=== PATIENT | male | born 1990 | race American Indian/Alaskan Native ===

== ENCOUNTER 2018-02-06 12:32 | Emergency (ER) | payer OTHER ==
[2018-02-06 13:19] VITALS: BP 129/87
[2018-02-06] MEDS ORDERED: Dexamethasone 4 MG/ML SDV IVPUSH ONE (13:44)
[2018-02-06] MEDS ORDERED: Sodium Chloride 0.9% 10 ML Syringe FLUSH PRN (13:44)
[2018-02-06] MEDS ORDERED: diphenhydrAMINE 50 MG/ML SDV IVPUSH ONE (13:45)
[2018-02-06] MEDS ORDERED: Azithromycin 250 MG Tab PO ONE (13:46)
[2018-02-06] MEDS ORDERED: Sodium Chloride 0.9% 1,000 ML IV ONE (13:46)
[2018-02-06] MEDS ORDERED: GI Cocktail Oral Solution 30 ML PO ONE (13:46)
--- NOTE | 2018-02-06 14:24 | EDM.PDOC ---
Scribed by Hilary Dueñas 02/06/18 [id number] for Solis Gao MD ED HPI GENERAL MEDICAL PROBLEM - General Chief Complaint: ENT Problem Stated Complaint: RT SWOLLEN GLAND/TONSIL Time Seen by Provider: 02/06/18 13:29 Source of Information: Reports: Patient, RN, RN Notes Reviewed History Limitations: Reports: No Limitations - History of Present Illness INITIAL COMMENTS - FREE TEXT/NARRATIVE: Patient presents to ER with complaint of sore throat and swollen tonsil. Admits to fever and chills. Denies difficulty breathing or swallowing. 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 - Related Data Allergies Allergy/AdvReac Type Severity Reaction Status Date / Time Penicillins Allergy Rash Verified 05/14/15 19:28 Home Meds: Home Meds Ibuprofen [Motrin] 400 mg PO QID PRN 02/06/18 [History] Past Medical History - Past Health History Medical/Surgical History: Denies Medical/Surgical History - Past Surgical History Musculoskeletal Surgical History: Reports: Other (See Below) Other Musculoskeletal Surgeries/Procedures:: left wrist./hand surgery Social & Family History - Family History Family Medical History: Noncontributory - Tobacco Use Smoking Status *Q: Current Every Day Smoker Years of Tobacco use: 18 Packs/Tins Daily: 1 - Caffeine Use Caffeine Use: Reports: Coffee - Recreational Drug Use Recreational Drug Use: No - Living Situation & Occupation Living situation: Reports: with Family Occupation: Employed ED ROS ENT - Review of Systems Review Of Systems: ROS reveals no pertinent complaints other than HPI. ED EXAM, ENT - Physical Exam Exam: See Below Exam Limited By: No Limitations General Appearance: Alert, WD/WN, No Apparent Distress Eye Exam: Bilateral Eye: Normal Inspection Ears: Normal External Exam, Normal Canal, Hearing Grossly Normal, Normal TMs Nose: Normal Inspection, Normal Mucousa, No Blood Mouth/Throat: Normal Gums, Normal Lips, Normal Teeth, Peritonsillar Mass ( moderate at Rt), Pharyngeal Erythema, Throat Pain, Tonsillar Erythema, Tonsillar Exudates, Tonsillar Swelling. No: Lip Swelling, Oral Ulcers, Throat Swelling, Tongue Swelling, Uvular Deviation, Uvular Edema Head: Atraumatic, Normocephalic Neck: Full Range of Motion, Lymphadenopathy (L), Lymphadenopathy (R) Respiratory/Chest: No Respiratory Distress, Lungs Clear, Normal Breath Sounds, No Accessory Muscle Use, Chest Non-Tender Cardiovascular: Regular Rate, Rhythm GI/Abdominal: Normal Bowel Sounds, Soft, Non-Tender, No Distention Neurological: Alert, Oriented, No Motor/Sensory Deficits Psychiatric: Normal Mood Skin: Warm, Dry, Intact, Normal Color, No Rash Course - Vital Signs Last Recorded V/S: Last Vital Signs Temp 37.4 C 02/06/18 14:09 Pulse 92 02/06/18 13:05 Resp 18 02/06/18 13:05 BP 129/87 02/06/18 13:05 Pulse Ox 97 02/06/18 13:05 - Orders/Labs/Meds Orders: Active Orders 24 hr Category Date Time Status Peripheral IV Care [RC] . DIRECTED Care 02/06/18 13:45 Active Sodium Chloride 0.9% [Normal Saline] 1,000 ml Med 02/06/18 13:46 Active IV .BOLUS Sodium Chloride 0.9% [Saline Flush] Med 02/06/18 13:44 Active 10 ml FLUSH ASDIRECTED PRN Peripheral IV Insertion Adult [OM.PC] Stat Oth 02/06/18 13:44 Ordered Medication Orders Sodium Chloride (Normal Saline) 1,000 mls @ 999 mls/hr IV .BOLUS ONE Stop: 02/06/18 14:46 Last Admin: 02/06/18 13:55 Dose: 999 mls/hr Sodium Chloride (Saline Flush) 10 ml FLUSH ASDIRECTED PRN PRN Reason: Keep Vein Open Last Admin: 02/06/18 14:04 Dose: 10 ml Labs: Rrapd strep: Positive. See rad report. Meds: Medications Generic Name Dose Route Start Last Admin Trade Name Freq PRN Reason Stop Dose Admin Sodium Chloride 1,000 mls @ 999 mls/hr 02/06/18 13:46 02/06/18 13:55 Normal Saline IV 02/06/18 14:46 999 mls/hr .BOLUS ONE Administration Sodium Chloride 10 ml 02/06/18 13:44 02/06/18 14:04 Saline Flush FLUSH 10 ml ASDIRECTED PRN Administration Keep Vein Open Discontinued Medications Generic Name Dose Route Start Last Admin Trade Name Freq PRN Reason Stop Dose Admin Al Hydroxide/Mg Hydroxide 30 ml 02/06/18 13:46 02/06/18 13:56 Gi Cocktail PO 02/06/18 13:47 30 ml ONETIME ONE Administration Azithromycin 500 mg 02/06/18 13:46 02/06/18 14:04 Zithromax PO 02/06/18 13:47 500 mg ONETIME ONE Administration Dexamethasone 20 mg 02/06/18 13:44 02/06/18 13:57 Dexamethasone IVPUSH 02/06/18 13:45 20 mg ONETIME ONE Administration Diphenhydramine HCl 12.5 mg 02/06/18 13:45 02/06/18 14:02 Benadryl IVPUSH 02/06/18 13:46 12.5 mg ONETIME ONE Administration Ceftriaxone Sodium 1 mg/ 100 mls @ 200 mls/hr 02/06/18 13:45 02/06/18 14:05 Sodium Chloride IV 02/06/18 14:14 200 mls/hr ONETIME ONE Administration Departure - Departure Time of Disposition: 14:55 Disposition: Home, Self-Care 01 Condition: Good Clinical Impression: Strep pharyngitis, Peritonsillar abscess - Discharge Information Instructions: Peritonsillar Abscess, Strep Throat, [id number] Forms: ED Department Discharge Additional Instructions: Rx: Prednisone 20mg Rx: Zithromax 500mg Frequent saltwater gargles until sore throat improves. Follow up in clinic this week for recheck and referral to ENT specialist for consideration of tonsillectomy. Return to ER if worse at any time. - My Orders Last 24 Hours: My Active Orders 02/06/18 13:44 Sodium Chloride 0.9% [Saline Flush] 10 ml FLUSH ASDIRECTED PRN Peripheral IV Insertion Adult [OM.PC] Stat 02/06/18 13:45 Peripheral IV Care [RC] . DIRECTED 02/06/18 13:46 Sodium Chloride 0.9% [Normal Saline] 1,000 ml IV .BOLUS - Assessment/Plan Last 24 Hours: My Active Orders 02/06/18 13:44 Sodium Chloride 0.9% [Saline Flush] 10 ml FLUSH ASDIRECTED PRN Peripheral IV Insertion Adult [OM.PC] Stat 02/06/18 13:45 Peripheral IV Care [RC] . DIRECTED 02/06/18 13:46 Sodium Chloride 0.9% [Normal Saline] 1,000 ml IV .BOLUS I have read and agree with the documentation that has been completed regarding this visit. By signing this record, I attest that the documentation was completed in my physical presence and is an accurate record of the encounter.
== END 2018-02-06 14:55 | disposition home or self-care (01) ==
LOC: DL.ED 12:32
DX: J36 Peritonsillar abscess (principal); F17.210 Nicotine dependence, cigarettes, uncomplicated; Z88.0 Allergy status to penicillin
CPT/HCPCS: 87430; 96365; 96375; 99283; A9270; J0696; J1100; J1200; J7030; J7050

== ENCOUNTER 2018-10-14 16:25 | Emergency (ER) | payer OTHER ==
[2018-10-14 16:36] VITALS: BP 117/88
[2018-10-14] MEDS: Sodium Chloride 0.9% 10 ML Syringe FLUSH PRN (16:55)
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
[2018-10-14 17:20] LABS: ANION GAP 18.7; CHLORIDE,CL 105 mmol/L (101-111); SODIUM,NA 140 mmol/L (135-145)
[2018-10-14] MEDS: Lidocaine 1% 30 ML SDV INJECT ONE (17:49)
[2018-10-14] MEDS: Bacitracin Oint 1 GM U/D Packet TOP ONE (17:50)
== END 2018-10-14 19:08 | disposition home or self-care (01) ==
LOC: DL.ED 16:25
DX: S82.851A Displaced trimalleolar fracture of right lower leg, initial encounter for closed fracture (principal); S01.81XA Laceration without foreign body of other part of head, initial encounter; S30.0XXA Contusion of lower back and pelvis, initial encounter; Z88.0 Allergy status to penicillin; F17.210 Nicotine dependence, cigarettes, uncomplicated; Y04.8XXA Assault by other bodily force, initial encounter
CPT/HCPCS: 12011; 36415; 70450; 71045; 73610; 80053; 80305; 81001; 85025; 99284; 99285; G0480; J2001; 12001

== ENCOUNTER 2018-11-25 20:53 | Emergency (ER) | payer OTHER ==
[2018-11-25 21:16] VITALS: BP 129/73; PULSE 101
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
[2018-11-25] MEDS ORDERED: Ibuprofen 600 MG Tab PO ONE (21:42)
== END 2018-11-25 22:49 ==
LOC: DL.ED 20:53
DX: S82.891D Other fracture of right lower leg, subsequent encounter for closed fracture with routine healing (principal); F17.210 Nicotine dependence, cigarettes, uncomplicated; Z88.0 Allergy status to penicillin; X58.XXXD Exposure to other specified factors, subsequent encounter
CPT/HCPCS: 73610; 99283; A9270; 99282

== ENCOUNTER 2025-01-09 18:34 | Emergency (ER) | payer MEDICAID, OTHER ==
[2025-01-09] MEDS: Ketorolac 30 MG/ML SDV IM ONE (18:47)
[2025-01-09 18:57] VITALS: BP 132/82; PULSE 114
== END 2025-01-09 18:55 ==
LOC: DL.ED 18:34
DX: S00.03XA Contusion of scalp, initial encounter (principal); R07.81 Pleurodynia; W50.0XXA Accidental hit or strike by another person, initial encounter; Y93.89 Activity, other specified
CPT/HCPCS: 96372; 99283; J1885